=== PATIENT | female | born 1985 | race Caucasian/White ===

== ENCOUNTER 2017-11-13 06:54 | Emergency (ER) | payer MEDICAID ==
[2017-11-13] MEDS: ALBUTEROL 0.083% (NEB) 2.5 MG/3 ML AMP HHN ×2 (08:21→11:24)
[2017-11-13] MEDS: ACETAMINOPHEN 325 MG TAB PO (08:34)
[2017-11-13] MEDS: DEXAMETHASONE 10 MG/ML 1 ML INJ IM (09:02)
[2017-11-13] MEDS: ONDANSETRON (ODT) 4 MG TAB ODT (09:02)
[2017-11-13] MEDS: KETOROLAC 30 MG INJ IV (10:17)
[2017-11-13] MEDS: SOD CHLORIDE 0.9% 1,000 ML IV (10:18)
[2017-11-13 10:20] LABS: ADD MAN DIFF? NO
[2017-11-13 10:22] LABS: WHITE BLOOD COUNT 10.8 10^3/ul (4.8-10.8)
[2017-11-13 10:22] LABS: BASOPHILS % 0.3 % (0.0-2.0); EOSINOPHILS # 0.1 10^3/ul (0.0-0.5); EOSINOPHILS % 0.6 % (0.0-7.0); HEMATOCRIT 40.1 % (37.0-47.0); HEMOGLOBIN 13.5 g/dl (12.0-16.0); LYMPHOCYTES # 1.3 10^3/ul (0.8-2.9); LYMPHOCYTES % 11.9 % (15.0-51.0); MEAN CORPUSCULAR HEMOGLOBIN 30.1 pg (29.0-33.0); MEAN CORPUSCULAR HGB CONC 33.7 g/dl (32.0-37.0); MEAN CORPUSCULAR VOLUME 89.3 fl (82.0-101.0); MEAN PLATELET VOLUME 10.2 fl (7.4-10.4); MONOCYTE # 0.6 10^3/ul (0.3-0.9); MONOCYTES % 5.6 % (0.0-11.0); NEUTROPHIL # 8.7 10^3/ul (1.6-7.5); NEUTROPHILS % 81.2 % (39.0-77.0); PLATELET COUNT 223 10^3/UL (140-415); RED BLOOD COUNT 4.49 10^6/ul (4.20-5.40); RED CELL DISTRIBUTION WIDTH 13.5 % (11.5-14.5)
[2017-11-13 10:41] LABS: ALANINE AMINOTRANSFERASE 118 IU/L (13-69); ALBUMIN/GLOBULIN RATIO 1.17; ALKALINE PHOSPHATASE 103 IU/L (42-121); ANION GAP 12 (8-16); ASPARTATE AMINO TRANSFERASE 53 IU/L (15-46); BILIRUBIN,INDIRECT 0.4 mg/dl (0-1.1); BILIRUBIN,TOTAL 0.4 mg/dl (0.2-1.3); BLOOD UREA NITROGEN 7 mg/dl (7-20); CALCIUM 8.3 mg/dl (8.4-10.2); CARBON DIOXIDE 26 mmol/L (21-31); CHLORIDE 106 mmol/L (97-110); CREATININE 0.57 mg/dl (0.44-1.00); GLUCOSE 111 mg/dl (70-220); POTASSIUM 3.3 mmol/L (3.5-5.1); SODIUM 141 mmol/L (135-144); TOTAL PROTEIN 7.4 g/dl (6.1-8.1)
[2017-11-13] MEDS: IPRATROPIUM (NEB) 0.5 MG/2.5 ML AMP HHN (11:25)
== END 2017-11-13 12:22 | disposition home or self-care (01) ==
LOC: FTE 06:54
DX: J06.9 Acute upper respiratory infection, unspecified (principal)
CPT/HCPCS: 36415; 71045; 80053; 81025; 85025; 87400; 94640; 94664; 96372; 96374; 99285-25